=== PATIENT | female | born 1990 ===

== ENCOUNTER 2024-03-08 06:20 | Day surgery (SDC) | payer OTHER, SELFPAY | END 2024-03-08 12:55 | disposition home or self-care (01) | LOC: GI 06:20 | PROVIDERS: ATTENDING PHYSICIAN Internal Medicine Gastroenterology | DX: K22.2 Esophageal obstruction (principal); K21.00 Gastro-esophageal reflux disease with esophagitis, without bleeding; K44.9 Diaphragmatic hernia without obstruction or gangrene; K31.7 Polyp of stomach and duodenum; R13.14 Dysphagia, pharyngoesophageal phase | CPT/HCPCS: 43249; 43239; 88305 ==